=== PATIENT | male | born 1980 | race Caucasian/White ===

== ENCOUNTER 2019-04-15 08:12 | Emergency (ER) | payer OTHER ==
[~2019-04-15] VITALS: Ht 172.7 cm; Wt 78.5 kg
[2019-04-15 09:06] LABS: INFLUENZA A ANTIGEN Negative (Negative); INFLUENZA B ANTIGEN Negative (Negative)
[2019-04-15] MEDS ORDERED: ZPAK PO (09:17)
[2019-04-15 09:31] VITALS: BP 128/80
== END 2019-04-15 09:31 | disposition home or self-care (01) ==
LOC: M.ERS 08:12
PROVIDERS: Emergency Medicine Emergency Medical Services
DX: J18.9 Pneumonia, unspecified organism (principal); Z77.22 Contact with and (suspected) exposure to environmental tobacco smoke (acute) (chronic)